=== PATIENT | male | born 1980 | race Two or more races ===

== ENCOUNTER 2025-09-22 06:09 | Day surgery (SDC) | payer MEDICAID ==
[2025-09-15 13:24] LABS: Hematocrit 42.4 % (41.0-53.0); Hemoglobin 15.0 g/dL (13.5-17.5); Mean Corpuscular Hemoglobin 30.6 pg (28.0-32.0); Mean Corpuscular Volume 86.3 fL (80.0-100.0); Nucleated Red Blood Cells % 0.1 %; Urine Protein, UAD Negative (Negative)
[2025-09-15 13:38] LABS: INR 0.97 (0.9-1.15); Partial Thromboplastin Time 23.9 SEC (24.5-34.5); Prothrombin Time 10.3 sec (9.3-11.8)
[2025-09-15 13:47] LABS: Alkaline Phosphatase 78 U/L (46-116); Anion Gap 9 (5-15); BUN/Creatinine Ratio 6.1 (10.0-20.0); Calcium 10.2 mg/dL (8.7-10.4); Carbon Dioxide 28 mmol/L (20-31); Glucose 96 mg/dL (74-106); Potassium 4.5 mmol/L (3.5-5.1); Total Protein 7.7 g/dL (5.7-8.2)
[2025-09-15 13:48] LABS: Alanine Aminotransferase 42 U/L (7-40); Albumin 4.8 g/dL (3.2-4.8); Bilirubin, Total 0.4 mg/dL (0.2-1.0); Blood Urea Nitrogen 7 mg/dL (9-23); Chloride 108 mmol/L (98-107); Sodium 145 mmol/L (136-145)
[~2025-09-22] VITALS: Ht 177.8 cm; Wt 97.5 kg
[~2025-09-22 06:09] MED LIST: ASPI81CH59 PO; ATOR-507 PO; TRAM50TA2 PO
[2025-09-22] MEDS ORDERED: BUPIVACAINE HCL 50 ML ONE (06:35)
[2025-09-22] MEDS ORDERED: CELECOXIB 100 MG CAP ONE (06:46)
[2025-09-22] MEDS ORDERED: GABAPENTIN 300 MG CAP ONE (06:46)
[2025-09-22] MEDS ORDERED: ACETAMINOPHEN IV 100 ML IV ONE (06:47)
[2025-09-22] MEDS ORDERED: SUCCINYLCHOLINE CHLORIDE 20 MG/ML 10ML VIAL IV ONE (06:48)
[2025-09-22] MEDS ORDERED: PROPOFOL 10 MG/ML 20 ML IV ONE (06:58)
[2025-09-22] MEDS ORDERED: KETOROLAC TROMETH 30 MG/ML 1ML VIAL ONE (06:58)
[2025-09-22] MEDS ORDERED: LIDOCAINE 2% (LOCAL ANESTH.) PF 5ml SDV ONE (06:58)
[2025-09-22] MEDS ORDERED: ONDANSETRON HCL 4 MG/2 ML VIAL ONE (06:58)
[2025-09-22] MEDS ORDERED: LIDOCAINE HCL 2% TOP JELLY 5ML TOP ONE (06:58)
[2025-09-22] MEDS ORDERED: GLYCOPYRROLATE 0.2 MG/ML 1ML VIAL ONE (06:58)
[2025-09-22] MEDS ORDERED: KETAMINE 50mg/ML 1ml syringe ONE (06:59)
[2025-09-22] MEDS ORDERED: fentaNYL CITRATE 100 MCG/2 ML VL ONE (06:59)
[2025-09-22] MEDS: GABAPENTIN 300 MG CAP PO ONE (07:00)
[2025-09-22] MEDS: ACETAMINOPHEN IV 1000 MG/100ML (10MG/ML) IV ONE (07:00)
[2025-09-22] MEDS: CELECOXIB 100 MG CAP PO ONE (07:00)
[2025-09-22] MEDS: ceFAZolin 2 GM/D5W50ml 50 ML IV ONE (07:20)
[2025-09-22] MEDS ORDERED: METOPROLOL TARTRATE 1MG/1ML-5ML VIAL IV ONE (07:24)
[2025-09-22 08:30] VITALS: PULSE 80; RESP 13; TEMP 98.4; O2SAT 99
[2025-09-22] MEDS ORDERED: ONDANSETRON HCL 4 MG/2 ML VIAL IV PRN (08:45)
[2025-09-22] MEDS ORDERED: HYDROmorphone HCL 2 MG/ML VL/or syr ONE (08:45)
[2025-09-22] MEDS ORDERED: hydrALAZINE HCL 20 MG/ML VL IV PRN (08:45)
[2025-09-22] MEDS ORDERED: NALOXONE HCL 0.4 MG/ML VIAL IV PRN (08:45)
[2025-09-22] MEDS ORDERED: fentaNYL CITRATE 100 MCG/2 ML VL IV PRN (08:45)
[2025-09-22] MEDS ORDERED: FLUMAZENIL 0.1 MG/ML INJ 10ML MDV IV PRN (08:45)
[2025-09-22] MEDS: HYDROmorphone HCL 2 MG/ML VL/or syr IV PRN (08:48)
--- NOTE | 2025-09-22 09:06 | DVHOP2 ---
Operative Report - 2 Report Details Date: 09/22/25 Preop Diagnosis: Right knee medial meniscus re-tear, possible root tear Postop Diagnosis: Right knee medial meniscus root tear, chondroplasty of the trochlea and the lateral tibial plateau Surgeon: Carolyn Pruitt MD Jumpbasting Machine Operator: None Anesthesiologist: Hipolito Bruno CRNA Anesthesia: General, Local Implant: Arthrex FiberLink sutures x2, SwiveLock anchor x1 Consent: The patient was informed of the risks and benefits of the procedure. These include but are not limited to complications of anesthesia, postoperative infection, incomplete relief of symptoms, recurrence of symptoms, damage to blood vessels, nerves and tendons, deep venous thrombosis, pulmonary embolism and possible need for repeat surgery in the future. Complications: None Estimated Blood Loss: Less than 5 mL Indications for Surgery: The patient is a 44-year-old male who had prior history of meniscus surgery. He continued to have some pain. Nonoperative and operative management options were discussed. Surgery in the form of knee arthroscopy with meniscus root repair was discussed as the patient's MRI did show a root root tear. Benefits, risks and treatment alternatives were discussed. Specific complications of the surgery such as neurovascular injury, infection, arthrofibrosis, loss of limb or life were discussed. He decided to proceed with the surgical option. Name of Procedure Performed Right knee arthroscopy with medial meniscus root repair, removal of loose body, chondroplasty of the lateral compartment and the patellofemoral compartment Procedure Details Procedure Details: The patient was identified in the preoperative holding area and the surgical site was marked. The consent was verified. The patient was brought into the operating room and placed supine on the operating table. General anesthesia was administered. A tourniquet was applied over the proximal thigh. All the bony prominences were appropriately padded. The knee was positioned appropriately. The extremity was now prepped and draped in the usual sterile manner. A timeout was called out to confirm the identity of the patient, the nature of surgery, the site of surgery, the availability of implants and x-rays and allergies to medications. A standard anterolateral portal was established. A 30 degree scope was inserted . A standard anteromedial portal was established, a probe was inserted and the findings are as follows 1. Medial meniscus root tear 2. Rest of the medial meniscus intact with undersurface meniscus repair implant 3. Grade 1 chondromalacia medial compartment 4. Intact lateral meniscus and grade 2 chondromalacia lateral tibial plateau 5. 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 This looked like an all suture implant. This was prominent. The root was probed and was found to be unstable and torn. I decided to repair the root. A suture passer grasper was used, two fiber link sutures were inserted in a loop fashion. This was at the root of the tear. Excellent grasp of the tissue was noted. Next, a guide was used to drill a tunnel right next to the attachment. A small incision was made over the medial aspect of the tibia. The guide was inserted. Next a pin was inserted at the insertion site. The guidepin was removed and the outer sleeve was used to pass a lasso loop. This was retrieved through the medial portal. The previously passed fiber tape was now inserted into the loop and passed through the tibial tunnel. Excellent fixation was noted. This was secured to the tibia with the help of a knotless anchor. A drill guide was used to drill the pin. Next a reamer was used. Next the knotless anchor was inserted for excellent fixation. Care was taken to hold the meniscus under some tension. The probe was inserted again to notice the fixation and was found to be excellent with anatomical tension and position. Some clotted blood was already noted at the insertion site. Chondroplasty of the trochlea was performed with the help of a shaver. Chondroplasty of the lateral tibial plateau was also performed. The edges were stabilized. Microfracture was not considered to be necessary due to the diffuse nature of the lesion. Irrigation was given and the skin incisions were closed with 2-0 Vicryl and 3-0 Monocryl. Sterile dressing was applied local anesthetic 0.5% Marcaine was inserted. The knee was placed in a hinged range of motion brace set at -10 to 70 degrees. Disposition: Good, the patient was extubated and taken to the recovery any complication Plan: No weightbearing allowed. Follow-up in 2 weeks Condition Good Disposition Home CAROLYN PRUITT MD Sep 22, 2025 09:06
[2025-09-22] MEDS ORDERED: HYDR1TAB97 PO (09:20)
[2025-09-22] MEDS ORDERED: CEPH500C PO (09:20)
[2025-09-22] MEDS ORDERED: ASPI-498 OR (09:20)
[2025-09-22 09:30] VITALS: BP 118/80; PULSE 68; RESP 13; O2SAT 100
== END 2025-09-24 09:37 | disposition home or self-care (01) ==
LOC: SUR 06:09
PROVIDERS: ATTEND Orthopaedic Surgery Sports Medicine
DX: M23.221 Derangement of posterior horn of medial meniscus due to old tear or injury, right knee (principal); M25.361 Other instability, right knee; M22.41 Chondromalacia patellae, right knee; E66.01 Morbid (severe) obesity due to excess calories; I25.2 Old myocardial infarction; G89.29 Other chronic pain; Z95.1 Presence of aortocoronary bypass graft; Z79.82 Long term (current) use of aspirin; Z88.2 Allergy status to sulfonamides; Z68.30 Body mass index [BMI] 30.0-30.9, adult; Z79.899 Other long term (current) drug therapy
CPT/HCPCS: 29882; 36415; 80053; 81001; 85025; 85610; 85730; J0330; J0690; J1100; J1171; J1885; J2003; J2405; J2704; J3010; J3490; J0131